=== PATIENT | male | born 1980 | race Two or more races ===

== ENCOUNTER 2021-11-18 23:47 | Emergency (ER) | payer MEDICAID, OTHER ==
[~2021-11-18] VITALS: Ht 188 cm; Wt 95.5 kg
[2021-11-19 01:50] LABS: Albumin 4.4 g/dL (3.4-5.0); BUN/Creatinine Ratio 17.9; Calcium 9.1 mg/dL (8.5-10.1); Potassium 3.1 mmol/L (3.5-5.1)
[2021-11-19 01:53] LABS: Bilirubin, Total 1.8 mg/dL (0.2-1.0); Total Protein 8.1 g/dL (6.4-8.2)
[2021-11-19 02:19] LABS: Basophils # (auto) 0 10 ^3/uL (0-0.2); Basophils % (auto) 0.2 % (0.0-2.0); Eosinophils # (auto) 0 10 ^3/uL (0-0.8); Eosinophils % (auto) 0.3 % (0.0-7.0); Hematocrit 43.5 % (41.0-53.0); Hemoglobin 14.3 g/dL (13.5-17.5); Lymphocytes # (auto) 2.4 10 ^3/uL (0.4-5.4); Lymphocytes % (auto) 21.3 % (10.0-50.0); Mean Corpuscular Hemoglobin 29.3 pg (28.0-32.0); Mean Corpuscular Hgb Conc. 32.9 g/dL (32.0-36.0); Mean Corpuscular Volume 89.2 fL (80.0-100.0); Monocytes # (auto) 0.8 10 ^3/uL (0-1.3); Monocytes % (auto) 7.2 % (0.0-12.0); Neutrophils # (auto) 7.9 10 ^3/uL (1.6-8.6); Red Blood Cells 4.88 10^6/uL (4.5-5.90); Red Cell Distribution Width 13.4 % (11.8-14.3); White Blood Cell 11.2 10^3/uL (4.4-10.8)
[2021-11-19 03:44] LABS: Urine Bacteria NONE SEEN /hpf (None Seen); Urine Blood Negative /uL (Negative); Urine Mucus FEW (None Seen); Urine Specific Gravity 1.036 (1.001-1.035); Urine WBC 1 /hpf (0 - 3)
[2021-11-19 07:02] VITALS: BP 132/81
== END 2021-11-19 07:10 | disposition home or self-care (01) ==
LOC: ER 23:47
DX: R07.89 Other chest pain (principal)
CPT/HCPCS: 36415; 71045; 80053; 81001; 84484; 85025; 93005

== ENCOUNTER 2022-06-20 18:30 | Emergency (ER) | payer SELFPAY ==
[~2022-06-20] VITALS: Ht 188 cm; Wt 110.0 kg
[2022-06-20] MEDS ORDERED: SODIUM CHLORIDE 0.9% 1,000 ML IV ONE (18:45)
[2022-06-20] MEDS ORDERED: ASPirin 325 MG TAB PO ONE (18:45)
[2022-06-20] MEDS ORDERED: LORazepam 2MG/ML-1ML VIAL IV ONE (18:45)
[2022-06-20 18:59] LABS: Basophils # (auto) 0 10 ^3/uL (0-0.2); Basophils % (auto) 0.4 % (0.0-2.0); Eosinophils # (auto) 0 10 ^3/uL (0-0.8); Eosinophils % (auto) 0.2 % (0.0-7.0); Hematocrit 43.4 % (41.0-53.0); Hemoglobin 14.7 g/dL (13.5-17.5); Lymphocytes # (auto) 1.9 10 ^3/uL (0.4-5.4); Lymphocytes % (auto) 16.2 % (10.0-50.0); Mean Corpuscular Hemoglobin 30.4 pg (28.0-32.0); Mean Corpuscular Volume 89.6 fL (80.0-100.0); Monocytes # (auto) 0.5 10 ^3/uL (0-1.3); Monocytes % (auto) 3.9 % (0.0-12.0); Neutrophils # (auto) 9.2 10 ^3/uL (1.6-8.6); Neutrophils % (auto) 79.3 % (37.0-80.0); Nucleated Red Blood Cells % 0.2 %; Red Blood Cells 4.84 10^6/uL (4.5-5.90); White Blood Cell 11.7 10^3/uL (4.4-10.8)
[2022-06-20 19:13] LABS: Albumin 4.3 g/dL (3.4-5.0); BUN/Creatinine Ratio 15.8; Calcium 8.5 mg/dL (8.5-10.1); Magnesium 1.9 mg/dL (1.6-2.6); Potassium 3.6 mmol/L (3.5-5.1)
[2022-06-20 19:15] LABS: INR 0.93 (0.9-1.15); Partial Thromboplastin Time 27.1 sec (24.6-33.4)
[2022-06-20 19:16] LABS: Total Protein 7.8 g/dL (6.4-8.2)
[2022-06-20] MEDS ORDERED: LORA-655 PO (22:26)
[2022-06-20 22:54] VITALS: BP 129/65
== END 2022-06-20 23:03 | disposition home or self-care (01) ==
LOC: ER 18:30
DX: F41.9 Anxiety disorder, unspecified (principal); Z79.899 Other long term (current) drug therapy
CPT/HCPCS: 36415; 71045; 80053; 83735; 83880; 84484; 85025; 85379; 85610; 85730; 93005; 96361; 96374; 99285; J2060; J7030